=== PATIENT | male | born 1995 | race African-American/Black ===

== ENCOUNTER 2020-07-28 22:18 | Inpatient (IN) | payer OTHER ==
[~2020-07-28] VITALS: Ht 175.3 cm; Wt 100.2 kg
[2020-07-28 23:38] LABS: HEMATOCRIT 44.2 % (42.0-52.0); HEMOGLOBIN 14.5 g/dl (13.5-17.5); MEAN CORPUSCULAR HEMOGLOBIN 29.8 pg (27.0-33.0); MEAN CORPUSCULAR HGB CONC 32.8 g/dl (32.0-36.5); MEAN CORPUSCULAR VOLUME 90.8 fl (80.0-96.0); PLATELET COUNT, AUTOMATED 197 10^3/uL (150-450); RED BLOOD COUNT 4.87 10^6/uL (4.30-6.10); WHITE BLOOD COUNT 6.6 10^3/uL (4.0-10.0)
[2020-07-28 23:55] LABS: AMPHETAMINES LEVEL URINE NEGATIVE (NEGATIVE); BARBITURATES URINE NEGATIVE (NEGATIVE); BENZODIAZEPINES URINE NEGATIVE (NEGATIVE); CANNABINOIDS URINE NEGATIVE (NEGATIVE); COCAINE METABOLITE URINE NEGATIVE (NEGATIVE); METHADONE URINE NEGATIVE (NEGATIVE); OPIATES URINE NEGATIVE (NEGATIVE); PHENCYCLIDINE URINE NEGATIVE (NEGATIVE)
[2020-07-29 00:03] LABS: ACETAMINOPHEN LEVEL < 2.0 UG/ML (10.0-30.0); ALBUMIN 4.4 GM/DL (3.2-5.2); ALT/SGPT 65 U/L (12-78); BILIRUBIN,DIRECT 0.2 MG/DL (0.0-0.2); BILIRUBIN,TOTAL 0.7 MG/DL (0.2-1.0); BLOOD UREA NITROGEN 11 MG/DL (7-18); CALCIUM LEVEL 9.7 MG/DL (8.5-10.1); CARBON DIOXIDE LEVEL 29 MEQ/L (21-32); CHLORIDE LEVEL 106 MEQ/L (98-107); CREATININE FOR GFR 1.17 MG/DL (0.70-1.30); ETHYL ALCOHOL (ETHANOL) 0.004 % (0.000-0.010); GLOMERULAR FILTRATION RATE > 60.0 (>60); GLUCOSE, FASTING 90 MG/DL (70-100); SALICYLATE LEVEL < 1.7 MG/DL (5.0-30.0); SODIUM LEVEL 141 MEQ/L (136-145); TOTAL PROTEIN 7.5 GM/DL (6.4-8.2)
[2020-07-29] MEDS ORDERED: MOM 30ML SUSPENSION UDC PO PRN (00:50)
[2020-07-29] MEDS ORDERED: OLANZapine ORAL DISINTEGRATING TAB 5MG PO PRN (00:50)
[2020-07-29] MEDS ORDERED: traZODone 50 MG TAB PO PRN (00:50)
[2020-07-29] MEDS ORDERED: MAALOX 30 ML SUSP *UDC PO PRN (00:50)
[2020-07-29] MEDS ORDERED: ACETAMINOPHEN TAB 650MG DOSE (2X325MG) PO PRN (00:50)
[2020-07-29 02:11] VITALS: BP 127/80
[2020-07-29 16:05] VITALS: BP 124/63
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
--- NOTE | 2020-07-29 17:30 | HPEPDOC ---
[facility] Medical History & Physical Date of Admission Jul 28, 2020 Date of Service: Jul 29, 2020 History and Physical CHIEF COMPLAINT: Suicide attempt by cutting HISTORY OF PRESENT ILLNESS: Mr. Hanson is a 25 year old male who is in the inpatient mental health unit for attempted suicide. He was seen this afternoon. Overall, he feels well. Denies chest pain, dyspnea, abdominal pain, or dysuria. PAST MEDICAL HISTORY: Denies any past medical history such as diabetes, hypertension, or thyroid problems. Does not take any regularly scheduled medications PAST SURGICAL HISTORY: 1. Surgery on left pinky (tumor) SOCIAL HISTORY: Tobacco use: Former smoker, quit in 2018 ETOH: Occasionally drinks alcohol Illicit drug use: Denies FAMILY HISTORY: Father: Brain tumor Mother: Denies any known medical history in mother ALLERGIES: Please see below. REVIEW OF SYSTEMS: CONSTITUTIONAL: Denies any fever or chills. ENT: Denies sore throat. RESPIRATORY: Denies shortness of breath. Denies cough. CARDIOVASCULAR: Denies chest pain. GASTROINTESTINAL: Denies abdominal pain. GENITOURINARY: Denies dysuria. CUTANEOUS: Denies rashes. MUSCULOSKELETAL: Denies muscle weakness. NEUROLOGICAL: Denies neuropathy. Denies paresthesias. PSYCHOLOGICAL: Denies anxiety. Denies depression. HOME MEDICATIONS: Please see below. PHYSICAL EXAMINATION: VITAL SIGNS: Temperature 98.4, pulse 76, respiratory rate 16, blood pressure 124/63, pulse oximetry 100% on room air. GENERAL: Comfortable, in no apparent distress. HEENT: Head normocephalic/atraumatic, EOMI, sclera clear. NECK: Supple, no JVD. RESPIRATORY: Lungs clear to auscultation bilaterally, no rales, wheeze or rhonchi. CARDIOVASCULAR: Regular rate and rhythm. ABDOMEN: Soft, nontender, no guarding or rebound tenderness. Normal bowel sounds. MUSCLE SKELETAL: Muscle strength 5/5 in all extremities. NEUROLOGICAL: CN 312 grossly intact, no focal deficits noted. PSYCHOLOGICAL: Normal mood and affect LABORATORY DATA: See below. IMAGING: None MICROBIOLOGY: Please see below. ASSESSMENT AND PLAN: 1. Suicide attempt by cutting -Being managed in the inpatient mental health unit 2. Wellness -Continue to follow up with PCP for wellness checks Thank you for consulting us, we will sign off at this time. If there are any further questions or concerns, please do not hesitate to contact us. Vital Signs Vital Signs Date Time Temp Pulse Resp B/P (MAP) Pulse Ox O2 Delivery O2 Flow Rate FiO2 07/29/20 16:05 98.4 76 16 124/63 (83) 100 Room Air Laboratory Data Labs 24H Laboratory Tests 2 07/28/20 23:02: Anion Gap 6L, Glomerular Filtration Rate > 60.0, Calcium Level 9.7, Total Bilirubin 0.7, Direct Bilirubin 0.2, Aspartate Amino Transf (AST/SGOT) 53H, Alanine Aminotransferase (ALT/SGPT) 65, Alkaline Phosphatase 84, Total Protein 7.5, Albumin 4.4, Albumin/Globulin Ratio 1.4, Thyroid Stimulating Hormone (TSH) 2.290, Salicylates Level < 1.7L, Urine Opiates Screen NEGATIVE, Urine Methadone Screen NEGATIVE, Acetaminophen Level < 2.0L, Urine Barbiturates Screen NEGATIVE, Urine Phencyclidine Screen NEGATIVE, Urine Amphetamines Screen NEGATIVE, Urine Benzodiazepines Screen NEGATIVE, Urine Cocaine Metabolite Screen NEGATIVE, Urine Cannabinoids Screen NEGATIVE, Ethyl Alcohol Level 0.004 07/28/20 23:10: Nucleated Red Blood Cells % (auto) 0.0 CBC/BMP Laboratory Tests 07/28/20 23:02 07/28/20 23:10 Microbiology Microbiology 07/28/20 Respiratory Virus Panel (PCR) (OFELIA) - Final, Complete Home Medications No Active Prescriptions or Reported Meds Allergies Coded Allergies: No Known Allergies (Verified Allergy, Unknown, 07/28/20) A-FIB/CHADSVASC A-FIB History Current/History of A-Fib/PAF?: No Age/Risk Factor Scoring CHADSVASC: CHADSVASC Response (Comments) Value Age Risk Factor Age < 65 years old 0 Gender Risk Factor Male 0 Hx of CHF No 0 Hx of HTN No 0 Hx of Stroke/TIA/or VTE No 0 Hx of Diabetes No 0 Hx of Vascular Disease No 0 Total 0 LUIS E KNIGHT DO Jul 29, 2020 17:30
[2020-07-30 06:00] VITALS: BP 146/70
[2020-07-30 16:58] VITALS: BP 139/57
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
[2020-07-31 06:14] VITALS: BP 137/79
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
[2020-07-31 17:58] VITALS: BP 136/67
[2020-08-01 06:39] VITALS: BP 133/80
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
== END 2020-08-01 13:00 | disposition home or self-care (01) | DRG 881 ==
LOC: M ED 22:18 → M ED INP 22:19 → M PSY 07-29 01:49
PROVIDERS: ADMIT Psychiatry & Neurology Psychiatry; ATTEND Psychiatry & Neurology Psychiatry
DX: F32.9 Major depressive disorder, single episode, unspecified (principal); Z87.891 Personal history of nicotine dependence; S61.512A Laceration without foreign body of left wrist, initial encounter; X78.8XXA Intentional self-harm by other sharp object, initial encounter; Y92.009 Unspecified place in unspecified non-institutional (private) residence as the place of occurrence of the external cause